=== PATIENT | male | born 2000 | race Caucasian/White ===

== ENCOUNTER 2021-12-26 02:26 | Emergency (ER) | payer MEDICAID, SELFPAY ==
[2021-12-26] VITALS (9 sets, daily range): BP systolic 124–159; BP diastolic 68–98; PULSE 62–102; RESP 14–18; TEMP 36.4–36.8; O2SAT 98–99; BMI 32.8
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
[2021-12-26 03:29] LABS: Amphetamine Urine VISTA POSITIVE (<1000 ng/mL); Barbiturate Urine VISTA NEGATIVE (< 200 ng/mL); Benzodiazepine Urine VISTA NEGATIVE (< 200 ng/mL); Cocaine Urine VISTA NEGATIVE (< 300 ng/mL); Ecstacy Urine VISTA NEGATIVE (< 500 ng/mL); Methadone Urine VISTA NEGATIVE (< 300 ng/mL); PCP Urine VISTA NEGATIVE (< 25 ng/mL); THC Urine VISTA NEGATIVE (< 50 ng/mL); Vista UDS pH Range 5
--- NOTE | 2021-12-26 04:16 | NURSING ---
CALLED [facility] AT [phone] AND FAXED OVER CHART.
--- NOTE | 2021-12-26 04:32 | NURSING ---
[facility] CALLED TO ASSESS AT [phone]
--- NOTE | 2021-12-26 04:57 | NURSING ---
[facility] IS TYPING UP ASSESSMENT AND WILL BEGIN PLACEMENT.
--- NOTE | 2021-12-26 06:34 | EKG12_ITS ---
Test Reason : Blood Pressure : / mmHG Vent. Rate : 080 BPM Atrial Rate : 080 BPM P-R Int : 184 ms QRS Dur : 082 ms QT Int : 360 ms P-R-T Axes : 039 005 014 degrees QTc Int : 415 ms Normal sinus rhythm Nonspecific T wave abnormality Abnormal ECG Confirmed by KIRAN EASTON, LISA ([id number]), magazine editor SHADI RUSSELL ([id number]) on 12/28/2021 11:12:06 AM Referred By: ELIZABETH Confirmed By:LISA BECK MD
--- NOTE | 2021-12-26 06:49 | NURSING ---
NO OLD EKGS
--- NOTE | 2021-12-26 07:29 | NURSING ---
FAXED EKG, CURRENT MEDS AND COVID TO [facility]
--- NOTE | 2021-12-26 09:18 | ED.RN ---
[facility] CALLED STATING [facility] IS STILL REVIEWING PTS CHART
[2021-12-26 10:02] LABS: Bacteria 0 SEEN /hpf (None Seen); Mucous, Urine 0 SEEN /hpf (<or=2+); Red Blood Cells-Urine 0 SEEN /hpf (0-5); Squamous Epithelial Cells - UA 0 SEEN /hpf (0-5); White Blood Cells 0 SEEN /hpf (0-5)
[2021-12-26 10:05] LABS: Color, Urine Yellow (Yellow); Glucose, Dipstick Normal (Normal); Ketone-Dipstick 5 mg/dl (Negative); Leukocyte Esterase-Dipstick Negative /ul (Negative); Nitrite-Dipstick Negative (Negative); Occult Blood-Urine Negative /ul (Negative); Protein-Dipstick 15 mg/dl (Negative); Specific Gravity, Urine 1.025 (1.002-1.030); Urine Bilirubin Dipstick Negative (Negative); Urine Clarity Cloudy (Clear); Urine Urobilinogen Normal (Normal)
[2021-12-26 10:28] LABS: Absolute Lymphocyte Count 2.61 X10^3/uL (0.83-4.51); Absolute Neutrophil Count 4.5 X10^3/uL (2.0-7.7); Basophil# 0.03 X10^3/uL; Basophil% 0.4 % (0-1); Eosinophil# 0.17 X10^3/uL; Eosinophils% 2.1 % (0-5); Hematocrit 46.2 % (40-54); Hemoglobin 15.7 g/dL (13.0-16.5); Lymphocyte # 2.61 X10^3/ul (0.83-4.51); Lymphocyte % 32.6 % (19-41); Mean Corpuscular Hgb 27.8 pg (27.0-32.0); Mean Corpuscular Volume 81.8 fL (80-94); Mean Platelet Vol. 11.7 fl (6.2-12.0); Monocyte# 0.68 X10^3/uL; Monocyte% 8.5 % (0-10); NRBC Flagged by Analyzer 0 % (0-5); Neutrophil # 4.45 X10^3/uL (2.7-7.7); Neutrophil % 55.6 % (47-70); Platelet Count 183 K/mm3 (150-450); RBC Distribution Width SD 38.3 fl (35.1-43.9); Red Blood Count 5.65 M/mm3 (4.6-6.2)
[2021-12-26 10:39] LABS: AST(SGOT) 50 U/L (15-37); Alanine Aminotransfer ALT/SGPT 133 U/L (16-61); Albumin, Serum 3.9 g/dL (3.2-5.0); Alkaline Phosphatase 64 U/L (45-117); Anion Gap 7 (5-15); BUN 13 mg/dL (7-18); Calcium,Total 9.2 mg/dL (8.5-10.1); Chloride 107 mmol/L (98-107); Creatinine, Serum 1.18 mg/dL (0.70-1.30); EST Glomerular Filtration Rate 81 mL/min (>60); Est Glom Filt Rate - Afr Amer 98 mL/min (>60); Glucose 101 mg/dL (74-106); Potassium 3.9 mmol/L (3.5-5.1); Protein, Total 7.9 g/dL (6.4-8.2); Sodium Level 141 mmol/L (136-145)
--- NOTE | 2021-12-26 11:07 | NURSING ---
FAXED LABS AND PINK SLIP TO [facility]
[2021-12-26 11:11] LABS: Amorphous Sediment 4+
--- NOTE | 2021-12-26 12:48 | NURSING ---
[facility] BED [id number] NURSE TO NURSE [phone]
--- NOTE | 2021-12-26 13:20 | NURSING ---
CALLED [facility], ETA IS 20 MIN
== END 2021-12-26 13:55 ==
PROVIDERS: Emergency Provider Emergency Medicine; Visit Provider Emergency Medicine
DX: R45.851 Suicidal ideations (principal); F41.9 Anxiety disorder, unspecified; F17.290 Nicotine dependence, other tobacco product, uncomplicated; F32.A Depression, unspecified; F90.9 Attention-deficit hyperactivity disorder, unspecified type
CPT/HCPCS: 80053; 80307; 81001; 82077; 85025; 87811; 93005; 99284

== ENCOUNTER 2022-05-12 05:10 | Emergency (ER) | payer OTHER, MEDICAID, SELFPAY ==
[2022-05-12 05:11] VITALS: BP 214/124; PULSE 105; RESP 18; TEMP 36.4; O2SAT 95; BMI 35.4
[2022-05-12 05:16] VITALS: BP 179/98; PULSE 105; RESP 16; O2SAT 95
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
--- NOTE | 2022-05-12 07:08 | EDS_ITS ---
HPI History of Present Illness Chief Complaint: Head Injury Narrative Narrative: Patient is a 21-year-old male with past medical history of anxiety depression ADHD and PTSD. He states around 5 PM this evening he was taking a shower and he was bent down and when he stood up he struck the back of his head onto a tile ledge. He denies being knocked out but states that he did see stars. He states since that time he has had fatigue light sensitivity and has been slow to respond. He denies any history of bleeding disorder or blood thinner use but with the symptoms he is concerned for concussion or underlying brain trauma so he comes in for evaluation [facility] Medical History (Updated 05/12/22 @ 07:[address] Kaz Reyes DO) ADHD Anxiety Depression, major PTSD (post-traumatic stress disorder) Home Medications NK 05/12/22 [History Last Taken Unknown] Allergy/AdvReac Type Severity Reaction Status Date / Time No Known Allergies Allergy Verified 12/26/21 02:42 Social History (Updated 12/26/21 @ 02:[address] Joss Vale MD) Smoking Status: Current every day smoker tobacco type: e-cigarettes substance use type: does not use ROS ROS ED Constitutional Constitutional ED: Denies chills or fever(s) Eyes Eyes: Reports other Details: Positive photophobia ENT ENT ED: Denies sore throat Cardiovascular Cardiovascular: Denies chest pain Respiratory/Chest Respiratory/Chest: Denies cough or dyspnea Gastrointestinal Gastrointestinal: Reports nausea; Denies abdominal pain, diarrhea or vomiting Genitourinary Genitourinary ED: Denies dysuria Musculoskeletal Musculoskeletal: Denies myalgias Integumentary Denies rash Neurologic Neurologic: Reports headache(s); Denies paresthesias or weakness Psychiatric Psychiatric: Reports anxiety Hematologic/Lymphatic Hematologic/Lymphatic: Denies easy bleeding or easy bruising EXAM Physical Exam Const Vital Signs: 05/12/22 05:11 05/12/22 05:13 05/12/22 05:16 Temperature 97.6 F L Temperature Source Temporal Pulse Rate 105 H 105 H Respiratory Rate 18 16 Respiratory Effort Normal Non-Labored Respiratory Depth Normal Respiratory Pattern Normal Blood Pressure 214/124 H 179/98 H Blood Pressure Mean 154 125 Pulse Ox 95 95 Oxygen Delivery Method Room Air Room Air Room Air Positive well nourished and well developed General Appearance ED: well developed HEENT Reports moist mucous membranes HEENT Narrative: No signs of depressed or basilar skull fracture Eyes EOMs intact bilaterally Eyes Narrative: Pupils are slightly dilated and slightly sluggish to respond to light Neck supple Neck Narrative: No bony deformity or step-off of the cervical spine no midline pain on palpation Resp normal respiratory effort and clear to auscultation bilaterally Cardio regular rate and regular rhythm Extremity normal to inspection Neuro oriented x3 and CN's II-XII intact bilaterally Neuro Narrative: Cranial nerves II through XII are grossly intact there are no focal neurologic deficits. No pronator drift no dysmetria no truncal ataxia. NIH stroke scale score of 0. GCS of 15 Sensorium / Orientation: alert Psych mental status grossly normal Skin no rashes or lesions noted Skin Narrative: No obvious abrasions or ecchymosis or large hematoma noted MDM MDM MDM Narrative Medical decision making narrative: Patient presented to the ER hypertensive but does have a history of anxiety and PTSD and therefore this is not to be unexpected. He reported striking his head multiple hours ago and does not have signs of depressed or basilar skull fracture but with his symptoms a CT head was obtained as patient could have underlying skull fracture or traumatic brain injury such as subdural hematoma or epidural hematoma. The CT revealed no acute traumatic finding and therefore his history and symptoms are most consistent with concussion. At this time he is awake and alert with normal neurologic exam and therefore there is no need for further observation or treatment in the ER and is otherwise safe for discharge Radiography Diagnostic Testing: Clinical Impression(s) from Imaging Studies Brain CT 05/12/22 05:32 IMPRESSION: Negative head/brain CT without intravenous contrast. Electronically Signed: Yuri Romero MD at 6:15 EST , Discharge Plan Triage Chief Complaint: Head Injury ED Provider: Kaz Reyes Dx/Rx/DC Orders Clinical Impression: Closed head injury, Concussion Instructions: After a Concussion, ED Concussion Prescriptions: No Action NK Primary Care Provider: Care Physician,No Primary Referrals: Care Physician,No Primary [Primary Care Provider] - Activity Restrictions/Additional Instructions: Please follow-up with Workmen's Comp. if needed and return to the ER should you have any further concerns Disposition Disposition: Home, Self Care Discharge Date/Time: 05/12/22 07:20
[2022-05-12 07:20] VITALS: RESP 16
== END 2022-05-12 07:20 | disposition home or self-care (01) ==
PROVIDERS: Emergency Provider Emergency Medicine; Visit Provider Emergency Medicine
DX: S06.0X0A Concussion without loss of consciousness, initial encounter (principal); F41.9 Anxiety disorder, unspecified; F17.290 Nicotine dependence, other tobacco product, uncomplicated; X58.XXXA Exposure to other specified factors, initial encounter
CPT/HCPCS: 70450; 99282

== ENCOUNTER 2022-05-26 01:45 | Emergency (ER) | payer OTHER, MEDICAID, SELFPAY ==
[2022-05-26 01:46] VITALS: BP 160/86; PULSE 87; RESP 18; TEMP 36.6; O2SAT 95; BMI 34.2
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
[2022-05-26] MEDS: Orphenadrine 60 MG/2 ML Ampul IM (02:53)
== END 2022-05-26 02:56 | disposition home or self-care (01) ==
PROVIDERS: Emergency Provider Emergency Medicine; Visit Provider Emergency Medicine
DX: S39.012A Strain of muscle, fascia and tendon of lower back, initial encounter (principal); F17.290 Nicotine dependence, other tobacco product, uncomplicated; S29.012A Strain of muscle and tendon of back wall of thorax, initial encounter; V86.11XA Passenger of ambulance or fire engine injured in traffic accident, initial encounter
CPT/HCPCS: 96372; 99282